=== PATIENT | female | born 1985 | race Caucasian/White ===

== ENCOUNTER 2025-02-18 22:28 | Observation (INO) | payer BC, SELFPAY ==
[2025-02-18 22:29] VITALS: BP 124/106; PULSE 82; RESP 18; TEMP 36.2; O2SAT 99; BMI 21.7
[2025-02-18 22:36] VITALS: BP 124/106; PULSE 82; RESP 18; O2SAT 99
--- NOTE | 2025-02-18 22:36 | CT_ITS ---
PROCEDURE: STROKE BRAIN/HEAD WITHOUT CONT 02/18/2025 REASON FOR EXAM: NEURO DEFICIT, ACUTE, STROKE SUSPECTED TECHNIQUE: Head CT without intravenous contrast. Coronal and Sagittal reconstruction series were provided. One or more dose reduction techniques were used (e.g., Automated exposure control, adjustment of the mA and/or kV according to patient size, use of iterative reconstruction technique. COMPARISON: None FINDINGS: * ACUTE: No acute infarct or hemorrhage. No mass effect or herniation. * BRAIN PARENCHYMA: Signal intensities are within normal limits for age. * VENTRICLES/EXTRA-AXIAL SPACES: No hydrocephalus or extra-axial fluid collections. * EXTRACRANIAL STRUCTURES: Visualized osseous structures are normal. Soft tissues are normal. CT/STROKE Brain/Head without Cont IMPRESSION: NO ACUTE FINDINGS Reading Location: [facility]
--- NOTE | 2025-02-18 22:36 | EKG12_ITS ---
Test Reason : STROKE Blood Pressure : */* mmHG Vent. Rate : 78 BPM Atrial Rate : 78 BPM P-R Int : 160 ms QRS Dur : 92 ms QT Int : 402 ms P-R-T Axes : 68 80 54 degrees QTcB Int : 458 ms Normal sinus rhythm Normal ECG Confirmed by LI SIMMONS, BETHANY ([id number]), associate editor MUNIR JORGE ([id number]) on 02/23/2025 9:07:09 AM Referred By: Confirmed By: BETHANY JEFFERSON MD
--- NOTE | 2025-02-18 22:37 | CT_ITS ---
PROCEDURE: STROKE CTA HEAD AND NECK W/CON 02/18/2025 REASON FOR EXAM: NEURO DEFICIT, ACUTE, STROKE SUSPECTED TECHNIQUE: CTA imaging of the head and neck from the aortic arch to the skull vertex with out contrast and with intravenous contrast. Multiplanar and multisequence images were obtained. CONTRAST: Omnipaque 350 VOLUME: 100 mL Not Provided Gauge IV One or more dose reduction techniques were used (e.g., Automated exposure control, adjustment of the mA and/or kV according to patient size, use of iterative reconstruction technique). COMPARISON: None FINDINGS: Aortic Arch: Normal size and branching pattern. No significant atherosclerotic plaque. Brachiocephalic and Subclavians: Unremarkable RIGHT Carotid: Right CCA: Unremarkable. Right ICA: Unremarkable. Maximum stenosis (NASCET): 0 % Right ECA: Unremarkable. LEFT Carotid: Left CCA: Unremarkable. Left ICA: Unremarkable. Maximum stenosis (NASCET): 0 % Left ECA: Unremarkable. Vertebrals: Codominant. Arise from the subclavians. Both vertebrals form the basilar. RIGHT Vertebral: Unremarkable. LEFT Vertebral: Anatomy: [place] anatomy is normal. Aneurysm or avm: Anterior cerebral arteries: Azygos configuration with bifurcation about the pericallosal region.: Middle cerebral arteries: Unremarkable. Basilar artery: Unremarkable. Posterior cerebral arteries: Unremarkable. Other major branches of the posterior circulation: Unremarkable. Major venous structures: Unremarkable. Other findings: Neck: No lymphadenopathy. Lungs: Lung apices are clear. Bones: Bones are unremarkable. CT/STROKE CTA Head AND Neck W/Con IMPRESSION: Patent anterior and posterior intracranial and extracranial circulation without hemodynamically significant stenosis. [facility]
--- NOTE | 2025-02-18 22:38 | ED.RN ---
Per Dr. Cirilo SIMMONS, not to call [facility] for Stroke Alert in triage.
[2025-02-18 22:39] VITALS: BMI 21.7
[2025-02-18 22:44] LABS: Absolute Lymphocyte Count 2.54 X10^3/uL (0.83-4.51); Absolute Neutrophil Count 3.8 X10^3/uL (2.0-7.7); Basophil# 0.06 X10^3/uL; Basophil% 0.8 % (0-1); Eosinophil# 0.12 X10^3/uL; Eosinophils% 1.6 % (0-5); Hematocrit 43.1 % (37-47); Hemoglobin 14.9 g/dL (12.0-15.0); Lymphocyte # 2.54 X10^3/ul (0.83-4.51); Lymphocyte % 34.7 % (19-41); Mean Corp Hgb Conc 34.6 g/dL (32-36); Mean Corpuscular Hgb 29.4 pg (27.0-32.0); Mean Platelet Vol. 9.4 fl (6.2-12.0); Monocyte# 0.79 X10^3/uL; Monocyte% 10.8 % (0-10); NRBC Flagged by Analyzer 0 % (0-5); Neutrophil % 51.8 % (47-70); Platelet Count 247 K/mm3 (150-450); RBC Distribution Width CV 12.2 % (11.6-14.6); RBC Distribution Width SD 37.5 fl (35.1-43.9); Red Blood Count 5.07 M/mm3 (4.2-5.4); White Blood Count 7.3 K/mm3 (4.4-11.0)
[2025-02-18 22:52] LABS: Prothrombin Time (Protime)PT. 13.6 SECONDS (11.7-14.9)
[2025-02-18 22:54] LABS: Bedside Glucose 91 mg/dL (74-106)
[2025-02-18 22:54] LABS: Partial Thromboplast Time 32.3 Seconds (24.1-36.2)
[2025-02-18 23:01] LABS: Alcohol, Blood (Medical)-Serum < 10.1 mg/dL (<=10.0); Anion Gap 13 (5-15); BUN 20 mg/dL (4-19); BUN/Creat Ratio 17.5 RATIO (10-20); Calcium,Total 9.7 mg/dL (7.6-11.0); Chloride 99 mmol/L (98-108); Creatinine, Serum 1.14 mg/dL (0.70-1.20); EST Glomerular Filtration Rate 63 (>60); Estimated Creatinine Clearance 62.64 ml/min (50-250); Glucose 90 mg/dL (70-99); Potassium 3.7 mmol/L (3.3-5.1); Sodium Level 135 mmol/L (133-145); Troponin T High Sensitivity < 6 ng/L (<=14)
--- NOTE | 2025-02-18 23:05 | EDS_ITS ---
HPI History of Present Illness Chief Complaint: Neuro S/Sx Informant: patient Onset/Context/Timing Onset: Today Context: Gradual Onset Current Severity: Gone Maximum Severity: Mild Narrative Narrative: 39-year-old female with past medical history of depression on Prozac. No prior cardiac history or dysrhythmia. No prior TIA or stroke. No prior history of clotting problems. States that she is under a lot of stress currently. They have 4 children at home. They also take care of 15 or so horses. 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 They also a lot of construction currently going on with her home which is adding to the stress. Said she felt like her mind was racing today. When she came in to work she felt like she was forgetting things. She did not feel safe taking care of patients. She had trouble sometimes finding words so she was brought down the emergency department to be evaluated. She denies any headache. No trouble moving her arms or legs. No vision change. Prior similar symptoms: No Recent Illness/Hospitalization: No PFSH PFSH Medical History no medical history Home Medications ?Medication ?Instructions ?Recorded ?Last Taken ?Type fluoxetine 20 mg capsule 20 mg PO DAILY 02/18/25 Unkn own History trazodone 50 mg tablet 50 mg PO QHS PRN PRN sleep 0 02/18/25 Unknown History Allergy/AdvReac Type Severity Reaction Status Date / Time No Known Allergies Allergy Verified 02/18/25 22:29 Surgical History History of Social History Smoking Status: Never smoker ROS ROS ED ROS Narrative Denies recent illness other than some mild diarrhea. Constitutional Constitutional ED: Denies chills or fever(s) Eyes Eyes: Denies blurry vision ENT ENT ED: Denies ear pain Cardiovascular Cardiovascular: Denies chest pain or palpitations Respiratory/Chest Respiratory/Chest: Denies cough or dyspnea Gastrointestinal Gastrointestinal: Denies abdominal pain Genitourinary Genitourinary ED: Denies dysuria or hematuria Musculoskeletal Musculoskeletal: Denies arthralgias, back pain or myalgias Integumentary Denies abscess or Abrasions Neurologic Neurologic: Denies headache(s) Psychiatric Psychiatric: Reports anxiety and depression Endocrine Endocrinology: Denies cold intolerance Hematologic/Lymphatic Hematologic/Lymphatic: Reports none Allergic/Immunologic Allergic/Immunologic ED: Denies mouth swelling, tongue swelling or urticaria EXAM Physical Exam Narrative Exam Narrative: 39-year-old female no acute distress vital signs stable afebrile. Pulse ox 99% on room air no signs of hypoxia. Initially saw on triage and reevaluated in room 11. H EENT exam pupils round react light. No facial droop. Normal speech. No trauma. Neck nontender no JVD. No lymphadenopathy. Lungs clear to AUSCULTATION bilaterally. Heart regular rhythm rate about 80 no murmur. Chest wall ribs nontender. Abdomen soft nontender. Moving all 4 extremities. Nontender no edema. Neurologically she is awake alert. Answering questions following commands. Normal clinical trial assistant strength. Normal speech. Normal dorsi plantarflexion. Normal fingertip to nose. No drift to the upper extremities. Normal dorsi plantarflexion. No drift in the lower extremities. [id number] normal. NIH is 0. At times she gets emotionally upset due to the stress but otherwise her exam is benign. Const Vital Signs: 02/18/25 22:29 02/18/25 22:36 02/18/25 22:40 Temperature 97.2 F L Temperature Source Temporal Pulse Rate 82 82 Respiratory Rate 18 18 Blood Pressure 124/106 H 124/106 H Blood Pressure Mean 112 112 Pulse Ox 99 99 Oxygen Delivery Method Room Air Room Air Room Air 02/18/25 23:28 02/19/25 00:00 Temperature Temperature Source Pulse Rate 67 61 Respiratory Rate 17 16 Blood Pressure 116/84 H 113/77 Blood Pressure Mean 94 89 Pulse Ox 99 100 Oxygen Delivery Method Room Air Room Air Positive well developed; Negative for cachectic, contractures or unkempt General Appearance ED: well developed and NAD; Negative for unkempt, cachectic, contractures, cyanotic, diaphoretic or pallor Nutritional Appearance: Negative for cachectic HEENT Reports moist mucous membranes Negative for trauma or tenderness Eyes PERRL and EOMs intact bilaterally Neck no lymphadenopathy, supple and no JVD Chest Wall inspection of chest normal and palpation of chest normal Resp normal respiratory effort and clear to auscultation bilaterally Cardio regular rate, regular rhythm, S1 normal heart sound, S2 normal heart sound and no murmurs GI normal to inspection, nondistended, normoactive bowel sounds, non-tender, non- distended and no masses Auscultation: normoactive bowel sounds Palpation: soft; Negative for tender, guarding or rebound tenderness present Back/Spine no CVA tenderness General Back: Negative for CVA tenderness Cervical Spine: Negative for cervical spine tenderness Thoracic Spine / Upper Back: Negative for thoracic spinal tenderness or paraspinal muscle tenderness Lumbar Spine / Lower Back: Negative for lumbar spinal tenderness Extremity normal to inspection General Extremety ED: Negative for edema or tenderness General Extremity: Negative for edema Neuro oriented x3 and CN's II-XII intact bilaterally Neuro Narrative: NIH is 0. Sensorium / Orientation: alert; Negative for orientation impaired, lethargic or stuporous Motor Exam: strength 5/5 throughout Psych mental status grossly normal Appearance: Negative for unkempt Attitude: No agitated Mood & Affect: anxious and tearful; Negative for depressed Skin no rashes or lesions noted, no wounds and skin turgor normal General Skin Exam: elasticity normal; Negative for jaundice or pallor Lesions: No lesion noted Rashes: No rashes noted Trauma: Negative for abrasion Wounds: Negative for wounds noted MDM MDM MDM Narrative Medical decision making narrative: 39-year-old female felt like her mind was racing. Possible difficulty finding her words but that is all completely resolved. Her neurologic exam and overall exam is completely normal. She was placed on a stroke protocol but my suspicion for stroke is extremely low. Patient was feeling anxious and requested something for anxiety she was given milligram p.o. of Ativan. Repeat exam at 12:20 AM patient doing well. More relaxed. Neurologic exam remains normal. NIH 0. Her is at her bedside. We discussed her test results for exams. Her CAT scans. Clinically I do not think this was a stroke or mini stroke. Given she has never had an anxiety attack before according to her . They would like her admitted for further evaluation and MRI. I will speak to the hospitalist. History & Record Review Discussion w/independent historian: Patient Additional record(s) reviewed:: Prior inpatient record, Prior outpatient record, Prior ED visit and Prior labs Lab Data Attestation: I reviewed the patient's lab results. Lab results narrative: CBC shows a white count of 7. H&H 14 and 43. Platelets 247. PT/INR is 13 and 1. PTT 32. Electrolytes show sodium 135. Gap 13. BUN and creatinine of 20 and 1.1. Glucose 90. Troponin is less than 6. EtOH is negative. CAT scan of the brain is negative. CTA of the head and neck unremarkable. Labs: Laboratory Results - last 24 hr 02/18/25 02/18/25 22:30 22:33 WBC 7.3 RBC 5.07 Hgb 14.9 Hct 43.1 MCV 85.0 MCH 29.4 MCHC 34.6 RDW Std Deviation 37.5 RDW Coeff of [place]adia 12.2 Plt Count 247 MPV 9.4 Immature Gran % (Auto) 0.300 Neut % (Auto) 51.8 Lymph % (Auto) 34.7 [place] % (Auto) 10.8 H Eos % (Auto) 1.6 Baso % (Auto) 0.8 Absolute Neuts (auto) 3.8 Absolute Lymphs (auto) 2.54 Nucleated RBC % 0 PT 13.6 INR 1.0 APTT 32.3 Sodium 135 Potassium 3.7 Chloride 99 Carbon Dioxide 24.0 Anion Gap 13 BUN 20 H Creatinine 1.14 Estim Creat Clear Calc 62.64 Est GFR (MDRD) Non-Af 63 BUN/Creatinine Ratio 17.5 Glucose 90 Calcium 9.7 Troponin T High Sens < 6 Ethyl Alcohol < 10.1 POC Glucose 91 Radiography Diagnostic Testing: Clinical Impression(s) from Imaging Studies Brain CT 02/18/25 22:36 IMPRESSION: NO ACUTE FINDINGS Reading Location: [facility] Head/Neck CTA 02/18/25 22:37 IMPRESSION: Patent anterior and posterior intracranial and extracranial circulation without hemodynamically significant stenosis. Reading Location: [facility] Rhythm Strip Rhythm Strip: Sinus Rhythm Rate: 78 Ectopy: None EKG Initial EKG: Attestation: I personally reviewed and interpreted this EKG as follows: Interpretation: Sinus Rhythm and No Acute Injury Pattern Comments: Normal sinus rhythm rate of 78 no acute signs of UT nor ischemia. No dysrhythmia. Discharge Plan Dx/Rx/DC Orders Clinical Impression: Anxiety, Dysarthria Disposition Disposition: [facility]
[2025-02-18] MEDS: LORazepam 1 MG Tablet PO (23:15)
[2025-02-18 23:28] VITALS: BP 116/84; PULSE 67; RESP 17; O2SAT 99
[2025-02-19] VITALS (10 sets, daily range): BP systolic 92–113; BP diastolic 63–98; PULSE 60–83; RESP 12–19; TEMP 36.6–36.9; O2SAT 97–100; BMI 20.2
--- NOTE | 2025-02-19 01:40 | ECHOD_ITS ---
Reason For Study Reason For Study: TIA/CVA Procedure This was a 2D Doppler, Color Flow transthoracic echocardiogram. Exam performed portable in patient room. Left Ventricle Normal LV size. The estimated ejection fraction is 55 %. No evidence for diastolic dysfunction. No regional wall motion abnormalities noted. Right Ventricle Normal RV size. Normal systolic function. Atria The left and right atria are normal. Bubble contrast study is negative for PFO/ASD. Mitral Valve There is no mitral valve stenosis. No mitral valve insufficiency. Tricuspid Valve There is no tricuspid stenosis. Unable to estimate RV systolic pressure due to insufficient tricuspid regurgitant envelope. Aortic Valve Trisinus/trileaflet aortic valve. There is no aortic stenosis. No aortic valve insufficiency. Pulmonic Valve There is no pulmonic valvular stenosis. No pulmonic valve insufficiency. Great Vessels The aortic root is not well visualized. Pericardium/Pleural No pericardial effusion. Medication Performed a rapid injection of agitated mix of 9 cc saline and 1cc air to assess for atrial septal defect. MMode/2D Measurements & Calculations LVIDd: 4.5 cm IVSd: 0.74 cm Ao root diam: 3.0 cm LVIDs: 2.8 cm LVPWd: 0.74 cm RVDd: 3.3 cm FS: 36.9 % LAV(MOD-bp): 21.9 ml LVAd ap4: 25.7 cm2 SV(MOD-sp4): 49.2 ml LAV(MOD-bp) Indexed: 13.0 ml/m2 LVLd ap4: 7.0 cm SI(MOD-sp4): 29.2 ml/m2 LAV(MOD-sp2): 26.2 ml EDV(MOD-sp4): 77.2 ml LAV(MOD-sp4): 18.1 ml EDV(sp4-el): 79.7 ml LVAs ap4: 13.8 cm2 LVLs ap4: 5.7 cm ESV(MOD-sp4): 28.0 ml ESV(sp4-el): 28.4 ml EF(MOD-sp4): 63.8 % EF(sp4-el): 64.3 % SV(sp4-el): 51.3 ml LA A4 area: 9.8 cm2 LA dimension(2D): 2.7 cm RA A4 area: 9.6 cm2 Time Measurements MV dec time: 0.32 sec Doppler Measurements & Calculations MV E max jese: 78.0 cm/sec Lat Peak E' Jese: 21.7 cm/sec Med Peak E' Jese: 15.5 cm/sec MV A max jese: 51.6 cm/sec E/E' lat: 3.6 E/E' med: 5.0 MV E/A: 1.5 MV V2 max: 86.1 cm/sec MV P1/2t max jese: 86.8 cm/sec Ao V2 max: 134.6 cm/sec MV max P.0 mmHg MV P1/2t: 111.5 msec Ao max P.2 mmHg MV V2 mean: 47.1 cm/sec MV dec slope: 228.0 cm/sec2 MV mean P.1 mmHg MVA(P1/2t): 2.0 cm2 MV V2 VTI: 27.1 cm LV V1 max: 119.5 cm/sec PA V2 max: 99.0 cm/sec LV V1 max P.7 mmHg ECHO/Echo Complete Interpretation Summary The estimated ejection fraction is 55 %. No evidence for diastolic dysfunction. Ordering Physician: Carissa Micahel Performed By: Boone Torres RCS
--- NOTE | 2025-02-19 01:47 | PCM.HP.STD ---
HPI - General General Date of Admission: 02/19/25 Date of Service: 02/19/25 Chief Complaint: TIA HPI Narrative JOSE G RECIO, is a 39 F with past medical history of depression, anxiety who presents to the ED for concerns regarding racing of thoughts' and difficulty in finding words since this morning. She notes she has been under significant stress at home and work lately. Also, her medications were started about 6 weeks back and her anxiety has increased since starting prozac. At the time of interview, she felt she is not back to her baseline functioning and still has to focus a lot more than usual to answer simple questions Works as the SERVER PROGRAMMER at [employer] No smoking, no alcohol use, no other drug use No family history of stroke No headaches or focal weakness present Had some difficulty while maintaining balance while walking CT head in the ED and priliminary examinations were negative for CVA [facility] Medical History no medical history Home Medications ?Medication ?Instructions ?Recorded ?Last Taken ?Type fluoxetine 20 mg capsule 20 mg PO DAILY 02/18/25 Unknown History trazodone 50 mg tablet 50 mg PO QHS PRN PRN sleep 02/18/25 Unknown History Allergy/AdvReac Type Severity Reaction Status Date / Time No Known Allergies Allergy Verified 02/18/25 22:29 Surgical History History of Social History Smoking Status: Never smoker Vital Signs Vital Signs Vital Signs: 02/18/25 22:29 02/18/25 22:36 02/18/25 22:40 Temperature 97.2 F L Temperature Source Temporal Pulse Rate 82 82 Respiratory Rate 18 18 Blood Pressure 124/106 H 124/106 H Blood Pressure Mean 112 112 Pulse Ox 99 99 Oxygen Delivery Method Room Air Room Air Room Air 02/18/25 23:28 02/19/25 00:00 02/19/25 00:37 Temperature 98.2 F Temperature Source Pulse Rate 67 61 60 Respiratory Rate 17 16 18 Blood Pressure 116/84 H 113/77 113/77 Blood Pressure Mean 94 89 89 Pulse Ox 99 100 100 Oxygen Delivery Method Room Air Room Air 02/19/25 01:00 Temperature Temperature Source Pulse Rate 78 Respiratory Rate 19 H Blood Pressure 109/98 H Blood Pressure Mean 101 Pulse Ox 97 Oxygen Delivery Method Room Air Weight Weight: 134 lb 14.4 oz Body Mass Index (BMI) 21.7 Physical Exam Const alert and oriented x3 HEENT normocephalic and head/scalp atraumatic Eyes PERRL and EOMs intact bilaterally Neck no lymphadenopathy Resp normal respiratory effort and no retractions Cardio regular rate and regular rhythm GI normal to inspection, nondistended, normoactive bowel sounds Extremity normal to inspection Neuro oriented x3, CN's II-XII intact bilaterally, moves all extremities and no focal motor deficits Sensorium / Orientation: awake, alert, oriented to person, oriented to place and oriented to time Results Medical Records Data Attestation: I reviewed the patient's medical records Lab / Micro Data 02/18/25 22:33 02/18/25 22:33 Labs: Laboratory Results - last 24 hr 02/18/25 22:30: POC Glucose 91 02/18/25 22:33: WBC 7.3, RBC 5.07, Hgb 14.9, Hct 43.1, MCV 85.0, MCH 29.4, MCHC 34.6, RDW Std Deviation 37.5, RDW Coeff of Eladia 12.2, Plt Count 247, MPV 9.4, Immature Gran % (Auto) 0.300, Neut % (Auto) 51.8, Lymph % (Auto) 34.7, [place] % (Auto) 10.8 H, Eos % (Auto) 1.6, Baso % (Auto) 0.8, Absolute Neuts (auto) 3.8, Absolute Lymphs (auto) 2.54, Nucleated RBC % 0, PT 13.6, INR 1.0, APTT 32.3, Sodium 135, Potassium 3.7, Chloride 99, Carbon Dioxide 24.0, Anion Gap 13, BUN 20 H, Creatinine 1.14, Estim Creat Clear Calc 62.64, Est GFR (MDRD) Non-Af 63, BUN/Creatinine Ratio 17.5, Glucose 90, Calcium 9.7, Troponin T High Sens < 6, Ethyl Alcohol < 10.1 Rhythm Strip Rhythm Strip: Sinus Rhythm Rate: 78 Ectopy: None Imaging Radiology Impression Brain CT 02/18/25 22:36 IMPRESSION: NO ACUTE FINDINGS Reading Location: [facility] Head/Neck CTA 02/18/25 22:37 IMPRESSION: Patent anterior and posterior intracranial and extracranial circulation without hemodynamically significant stenosis. Reading Location: [facility] Assessment & Plan Assessment/Plan (1) Dysarthria: PLAN: Plan 39-year-old female with history of of anxiety and depression presents to the ED with acute onset dysarthria, racing of thoughts and word finding difficulties that has not completely resolved since evaluation in the ED. There is no findings concerning for CVA at this time on the imaging studies and the likely reason for her presentation could be a panic attack given the ongoing stressors in her life, prior history of depression and recent initiation of Prozac. However there is a possibility of a missed TIA or an embolic episode or demyelination and we will admit her for MRI brain for further evaluation. #Dysarthria, confusion - Monitor for progression of neurodeficits via serial neurochecks - MRI brain with and without contrast scheduled for tomorrow to evaluate for ischemia, demyelination or any mass effect - Continue all precautions for fall prevention and close monitoring - Pending echocardiogram tomorrow - [facility] for [facility] - PT/OT evaluation for balance #Anxiety - continue present medications - Outpatient follow-up if symptoms are not controlled #Depression - Continue present medications #DVT - Low risk-admitted only for observation, encourage mobilization # Full code
[2025-02-19 07:05] LABS: Absolute Lymphocyte Count 1.77 X10^3/uL (0.83-4.51); Absolute Neutrophil Count 4.1 X10^3/uL (2.0-7.7); Basophil# 0.08 X10^3/uL; Basophil% 1.2 % (0-1); Eosinophil# 0.11 X10^3/uL; Eosinophils% 1.6 % (0-5); Hematocrit 39.7 % (37-47); Hemoglobin 13.2 g/dL (12.0-15.0); Lymphocyte # 1.77 X10^3/ul (0.83-4.51); Lymphocyte % 26.2 % (19-41); Mean Corp Hgb Conc 33.2 g/dL (32-36); Mean Corpuscular Hgb 29.3 pg (27.0-32.0); Mean Corpuscular Volume 88.2 fL (81-99); Mean Platelet Vol. 9.9 fl (6.2-12.0); Monocyte# 0.73 X10^3/uL; Monocyte% 10.8 % (0-10); NRBC Flagged by Analyzer 0 % (0-5); Neutrophil # 4.05 X10^3/uL (2.7-7.7); Neutrophil % 59.9 % (47-70); Platelet Count 209 K/mm3 (150-450); RBC Distribution Width CV 12.2 % (11.6-14.6); RBC Distribution Width SD 39.4 fl (35.1-43.9); White Blood Count 6.8 K/mm3 (4.4-11.0)
--- NOTE | 2025-02-19 07:41 | MRI_ITS ---
PROCEDURE: BRAIN WITHOUT CONTRAST 02/19/2025 REASON FOR EXAM: SUSPECTED TIA TECHNIQUE: Noncontrast brain MRI. Multiplanar and multisequence images were obtained. COMPARISON: Head CT of 02/18/2025. FINDINGS: Diffusion-weighted images demonstrate no area of restricted diffusion. Brain: Normal signal intensities. No orbital pathology is seen. Internal auditory canals appear symmetric and within the normal range. Ventricles: Normal. Major Intracranial Vessels: No abnormality identified. Sinuses: Clear. Mastoids: Clear. MRI/Brain without Contrast IMPRESSION: No significant abnormality identified. Reading Location: [place] [id number]
--- NOTE | 2025-02-19 08:29 | PCM.PN.HOSP ---
Reason for Visit Reason for Visit: Diagnoses Dysarthria and anarthria (02/19/25) Objective Data Objective Data Vital Signs: Vital Signs Temp Pulse Resp BP Pulse Ox O2 Del Method 98.5 F 83 16 106/71 98 Room Air 02/19/25 06:00 02/19/25 06:00 02/19/25 06:00 02/19/25 06:00 02/19/25 06:00 02/19/25 06:00 Oxygen Delivery Method Room Air Weight: 132 lb 11.492 oz Body Mass Index (BMI) 20.2 Intake & Output: Intake and Output for Last 24 Hours 02/17/25 02/18/25 02/19/25 23:59 23:59 23:59 Intake Total 100 / 100 Balance 100 / 100 Lab / Micro Data 02/19/25 06:15 02/18/25 22:33 Labs: Laboratory Results - last 24 hr 02/18/25 22:30: POC Glucose 91 02/18/25 22:33: WBC 7.3, RBC 5.07, Hgb 14.9, Hct 43.1, MCV 85.0, MCH 29.4, MCHC 34.6, RDW Std Deviation 37.5, RDW Coeff of [place]ad[place] 12.2, Plt Count 247, MPV 9.4, Immature Gran % (Auto) 0.300, Neut % (Auto) 51.8, Lymph % (Auto) 34.7, [place] % (Auto) 10.8 H, Eos % (Auto) 1.6, Baso % (Auto) 0.8, Absolute Neuts (auto) 3.8, Absolute Lymphs (auto) 2.54, Nucleated RBC % 0, PT 13.6, INR 1.0, APTT 32.3, Sodium 135, Potassium 3.7, Chloride 99, Carbon Dioxide 24.0, Anion Gap 13, BUN 20 H, Creatinine 1.14, Estim Creat Clear Calc 62.64, Est GFR (MDRD) Non-Af 63, BUN/Creatinine Ratio 17.5, Glucose 90, Calcium 9.7, Troponin T High Sens < 6, Ethyl Alcohol < 10.1 02/19/25 06:15: WBC 6.8, RBC 4.50, Hgb 13.2, Hct 39.7, MCV 88.2, MCH 29.3, MCHC 33.2, RDW Std Deviation 39.4, RDW Coeff of [place] 12.2, Plt Count 209, MPV 9.9, Immature Gran % (Auto) 0.300, Neut % (Auto) 59.9, Lymph % (Auto) 26.2, [place] % (Auto) 10.8 H, Eos % (Auto) 1.6, Baso % (Auto) 1.2 H, Absolute Neuts (auto) 4.1, Absolute Lymphs (auto) 1.77, Nucleated RBC % 0 Radiography Diagnostic Testing: Radiology Impression Brain CT 02/18/25 22:36 IMPRESSION: NO ACUTE FINDINGS [facility]Neck [facility] 02/18/25 22:37 IMPRESSION: Patent anterior and posterior intracranial and extracranial circulation without hemodynamically significant stenosis. Reading [facility] Rhythm Strip Rhythm Strip: Sinus Rhythm Rate: 78 Ectopy: None Assessment & Plan Assessment/Plan (1) Dysarthria: PLAN: Plan 39-year-old female with history of of anxiety and depression presents to the ED with acute onset dysarthria, racing of thoughts and word finding difficulties that has not completely resolved since evaluation in the ED. There is no findings concerning for CVA at this time on the imaging studies and the likely reason for her presentation could be a panic attack given the ongoing stressors in her life, prior history of depression and recent initiation of Prozac. However there is a possibility of a missed TIA or an embolic episode or demyelination and we will admit her for MRI brain for further evaluation. #Dysarthria, confusion - Monitor for progression of neurodeficits via serial neurochecks - MRI brain with and without contrast scheduled for tomorrow to evaluate for ischemia, demyelination or any mass effect - Continue all precautions for fall prevention and close monitoring - Pending echocardiogram tomorrow - Plan admit to [facility] for now - PT/OT evaluation for balance #Anxiety - continue present medications - Outpatient follow-up if symptoms are not controlled #Depression - Continue present medications #DVT - Low risk-admitted only for observation, encourage mobilization # Full code NIHSS NIHSS Nursing Documentation NIHSS Nursing Documentation: NIHSS: Ischemic Stroke/TIA Start: 02/19/25 01:39 Text: For PCU Patients: NIH and Neuro Check every 4 Status: Active hours, PRN and with change in RN caregiver. Freq: [id number] Protocol: Activity Type Activity Date Activity User E-sign Co-sign Detail Recorded Client Recorded Date Recorded By Document 02/19/25 06:00 [facility] [id number] 02/19/25 06:49 [facility] 02/19/25 06:00 NIH Stroke Scale [NIHSS] A score of 0 is normal or asymptomatic . Total possible score is 42. Inpatient: RN or Physician to activate a stroke alert for onset of new stroke symptoms or with NIHSS increase >/= 3 points. Following change in neurological status, NIHSS will be performed per physician order or more frequently PRN. -1a. Level of Consciousness 0 - Alert; keenly responsive -1b. LOC Questions 0 - Answers BOTH questions correctly -1c. LOC Commands 0 - Performs BOTH tasks correctly -2. Best Gaze 0 - Normal -3. Visual 0 - No visual loss -4. Facial Palsy 0 - Normal symmetrical movements -5a. Left Arm 0 - No drift; arm holds 90 ( or 45) degrees for full 10 seconds -5b. Right Arm 0 - No drift; arm holds 90 ( or 45) degrees for full 10 seconds -6a. Left Leg 0 - No drift; leg holds 30- degree position for full 5 seconds -6b. Right Leg 0 - No drift; leg holds 30- degree position for full 5 seconds -7. Limb Ataxia 0 - Absent -8. Sensory 1 - Mild-to- moderate sensory loss; -9. Best Language 0 - No aphasia; normal -10. Dysarthria 0 - Normal -11. Extinction and Inattention 0 - No abnormality -Total 1 Query Text:A score of 0 is normal or asymptomatic. Total possible score is 42 . ED: Notify Physician for NIHSS increase by > / = 3 points. Inpatient: RN or Physician to activate a stroke alert for NIHSS increase of > / = 3 points. Coma Scale [Assess] -Eye Opening Spontaneous -Motor Obeys Commands -Verbal Oriented [Total] -Coma Scale Total 15
[2025-02-19 09:11] LABS: Cholesterol 220 mg/dL (<=200); High Density Lipoprotein 97 mg/dL; Low Density Lipoprotein Calc. 116 mg/dL; Triglycerides 35 mg/dL; Very Low Density Lipoprotein 7 mg/dL (5-40); cholesterol:hdl ratio screen 2.28
[2025-02-19 09:26] LABS: ALB/GLOB Ratio 1.7 RATIO (0.9-2.4); AST(SGOT) 19 U/L (<=31); Alanine Aminotransfer ALT/SGPT 6 U/L (<=34); Albumin, Serum 4.2 g/dL (3.5-5.0); Alkaline Phosphatase 54 U/L (35-104); Anion Gap 11 (5-15); BUN 17 mg/dL (4-19); BUN/Creat Ratio 16.6 RATIO (10-20); Carbon Dioxide 22.4 mmol/L (21.0-32.0); Chloride 102 mmol/L (98-108); Creatinine, Serum 1.02 mg/dL (0.70-1.20); EST Glomerular Filtration Rate 72 (>60); Estimated Creatinine Clearance 71.07 ml/min (50-250); Globulin 2.5 g/dL (2.2-4.2); Glucose 83 mg/dL (70-99); Potassium 3.8 mmol/L (3.3-5.1); Protein, Total 6.7 g/dL (5.9-8.4); Sodium Level 136 mmol/L (133-145)
--- NOTE | 2025-02-19 10:20 | DCINST_ITS ---
Discharge Instructions Diet Discharge Diet: No restrictions DC O2, CPAP, BIPAP needs Home O2 Discharge instructions: No Dressing / Incision Discharge Activity: Return to Normal Activity Weight Bearing Status: Weight bearing as tolerated Dressing / Incision Call your doctor if you observe: Fever of 101 or Higher, Coldness, Increased Pain, Numbness or Tingling, Change in Color, Inability to urinate, Inability to have a bowel movement, Shortness of breath, Dizziness, Fainting spells, Swelling in the ankles, Chest pain, Prolonged hiccupping, Increased palpitations (irregular heartbeat) and Calf discomfort Follow Up Care When: IN 2 WEEKS Test Results: Test results from this visit will be discussed in further detail at your follow- up appointment, if applicable. Discharge Plan Admission Admit Date/Time: 02/19/25 01:38 Primary Reason for Your Visit: Numbness, acute stroke ruled out. Attending Provider: Christian Portillo Primary Care Provider: JOAN VILLAFANA Consulting Providers: Carissa Michael Discharge Orders/Prescriptions Prescriptions: Continued trazodone 50 mg tablet 50 mg PO QHS PRN PRN (Reason: sleep) fluoxetine 20 mg capsule 20 mg PO DAILY Referrals / Follow Up: JOAN VILLAFANA [Other] - As soon as possible JOAN VILLAFANA [Other] Care Physician,No Primary [Non-Staff] - Disposition Disposition (needs filled in before D/C Order can be placed): Home, Self Care
--- NOTE | 2025-02-19 15:23 | DS.PCM_ITS ---
Providers Date of Admission: 02/19/25 Date of Discharge: 02/19/25 Primary Care Physician: JOAN VILLAFANA Reason For Visit: TIA Diagnosis Discharge Diagnosis (1) Dysarthria: Status: Acute Code(s): R47.1 - Dysarthria and anarthria Plan 39-year-old female with history of of anxiety and depression presents to the ED with acute onset dysarthria, racing of thoughts and word finding difficulties that has not completely resolved since evaluation in the ED. There is no findings concerning for CVA at this time on the imaging studies and the likely reason for her presentation could be a panic attack given the ongoing stressors in her life, prior history of depression and recent initiation of Prozac. However there is a possibility of a missed TIA or an embolic episode or demyelination and we will admit her for MRI brain for further evaluation. #Dysarthria, confusion: Patient was admitted for stroke workup. She had NIH stroke scale of 0. She had complete workup for stroke including CTA head and neck and MRI brain all reported no acute abnormality. Fasting 12 shows total cholesterol 220, LDL 116. Patient is discharged home. Acute TIA/stroke ruled out. #Anxiety - continue present medications - Outpatient follow-up if symptoms are not controlled #Depression - Continue present medications #DVT - Low risk-admitted only for observation, encourage mobilization # Full code Medications at Discharge Home Medications fluoxetine 20 mg capsule 20 mg PO DAILY 02/18/25 trazodone 50 mg tablet 50 mg PO QHS PRN PRN sleep 02/18/25 Physical Exam Narrative Seen and examined Patient complained that she has anxiety and depression and she takes fluoxetine for about 2 months. She also takes intermittently trazodone 50 mg at night. She does not have dysarthria but was having word finding difficulty/verbal output before coming to ED Physical exam General: Alert, Oriented x3, Cooperative. BMI 20.2 kg/m? HEENT: Atraumatic, PERRLA, EOMI, Normocephalic. Oral: No Gingival or Mucosal Lesions/ Ulcerations Neck: Supple, No JVD, Negative Carotid Bruits Chest wall/Lungs: Air entry equal in bilateral lung bases. No crepitation/rhonchi Cardiovascular: Regular rate and rhythm, Normal S1,S2, No M/G/R Abdomen: Bowel Sounds Present, Soft, Non Tender, Non-Distended : No dysuria. No renal angle tenderness. No suprapubic tenderness. Extremities: No edema, Capillary Refill Less than 3 Seconds Skin: No rashes, No breakdown Musculoskeletal: No Tenderness to Palpation of Joints or Extremities Neurological: Cranial nerves II-XII grossly intact, DTR 2+/4. NIH stroke scale 0. No acute focal neurological deficit. Psych/Mental Status: Normal Affect, Appropriate. Weight / BMI Weight Weight: 132 lb 11.492 oz Body Mass Index (BMI) 20.2 ABG / Lab / Microbiology Data 02/19/25 06:15 02/19/25 06:15 Laboratory: Laboratory Results - last 24 hr 02/18/25 22:30: POC Glucose 91 02/18/25 22:33: WBC 7.3, RBC 5.07, Hgb 14.9, Hct 43.1, MCV 85.0, MCH 29.4, MCHC 34.6, RDW Std Deviation 37.5, RDW Coeff of Eladia 12.2, Plt Count 247, MPV 9.4, Immature Gran % (Auto) 0.300, Neut % (Auto) 51.8, Lymph % (Auto) 34.7, [place] % (Auto) 10.8 H, Eos % (Auto) 1.6, Baso % (Auto) 0.8, Absolute Neuts (auto) 3.8, Absolute Lymphs (auto) 2.54, Nucleated RBC % 0, PT 13.6, INR 1.0, APTT 32.3, Sodium 135, Potassium 3.7, Chloride 99, Carbon Dioxide 24.0, Anion Gap 13, BUN 20 H, Creatinine 1.14, Estim Creat Clear Calc 62.64, Est GFR (MDRD) Non-Af 63, BUN/Creatinine Ratio 17.5, Glucose 90, Calcium 9.7, Troponin T High Sens < 6, Ethyl Alcohol < 10.1 02/19/25 06:15: WBC 6.8, RBC 4.50, Hgb 13.2, Hct 39.7, MCV 88.2, MCH 29.3, MCHC 33.2, RDW Std Deviation 39.4, RDW Coeff of Eladia 12.2, Plt Count 209, MPV 9.9, Immature Gran % (Auto) 0.300, Neut % (Auto) 59.9, Lymph % (Auto) 26.2, [place] % (Auto) 10.8 H, Eos % (Auto) 1.6, Baso % (Auto) 1.2 H, Absolute Neuts (auto) 4.1, Absolute Lymphs (auto) 1.77, Nucleated RBC % 0, Sodium 136, Potassium 3.8, Chloride 102, Carbon Dioxide 22.4, Anion Gap 11, BUN 17, Creatinine 1.02, Estim Creat Clear Calc 71.07, Est GFR (MDRD) Non-Af 72, BUN/Creatinine Ratio 16.6, Glucose 83, Calcium 9.0, Total Bilirubin 0.60, AST 19, ALT 6, Alkaline Phosphatase 54, Total Protein 6.7, Albumin 4.2, Globulin 2.5, Albumin/Globulin Ratio 1.7, Triglycerides 35, Cholesterol 220 H, LDL Cholesterol, Calc 116, VLDL Cholesterol 7, HDL Cholesterol 97, Cholesterol/HDL Ratio 2.28 Radiography Diagnostic Testing: Radiology Impression Brain CT 02/18/25 22:36 IMPRESSION: NO ACUTE FINDINGS Reading Location: [facility] Head/Neck CTA 02/18/25 22:37 IMPRESSION: Patent anterior and posterior intracranial and extracranial circulation without hemodynamically significant stenosis. Reading Location: [facility] Echocardiogram 02/19/25 01:40 Interpretation Summary The estimated ejection fraction is 55 %. No evidence for diastolic dysfunction. Ordering Physician: Carissa Michael Performed By: Boone Torres RCS Brain MRI 02/19/25 07:41 IMPRESSION: No significant abnormality identified. Reading Location: [id number] D/C Instructions Discharge Diet: No restrictions Weight Bearing Status: Weight bearing as tolerated Call your doctor if you observe: Fever of 101 or Higher, Coldness, Increased Pain, Numbness or Tingling, Change in Color, Inability to urinate, Inability to have a bowel movement, Shortness of breath, Dizziness, Fainting spells, Swelling in the ankles, Chest pain, Prolonged hiccupping, Increased palpitations (irregular heartbeat) and Calf discomfort DC O2, CPAP, BIPAP Needs Home O2 Discharge instructions: No When: IN 2 WEEKS Meaningful Use Info Meaningful Use Meaningful Use Diagnoses (Choose all that apply): None applicable Ischemic Stroke Statin Dosing Therapy Reference: STATIN DOSE THERAPY REFERENCE: * Patients > 75 years receive moderate or high dose statin therapy. * Patients 75 years or YOUNGER should receive HIGH intensity statin dose unless contraindicated. You will be required to document reason for non-treatment if statin daily dose does not meet guidelines. HIGH DOSE STATIN THERAPY DAILY Atorvastatin > than or = to 40 mg Rosuvastatin > than or = to 20 mg Amlodipine + Atorvastatin > than or = to 2.5/40 mg Ezetimibe + Simvastatin 10/80 mg Simvastatin 80mg Discharge Plan Admission Admit Date/Time: 02/19/25 01:38 Primary Reason for Your Visit: Numbness, acute stroke ruled out. Attending Provider: Christian Portillo Primary Care Provider: JOAN VILLAFANA Consulting Providers: Carissa Michael Discharge Orders/Prescriptions Prescriptions: Continued trazodone 50 mg tablet 50 mg PO QHS PRN PRN (Reason: sleep) fluoxetine 20 mg capsule 20 mg PO DAILY Referrals / Follow Up: JOAN VILLAFANA [Other] - As soon as possible JOAN VILLAFANA [Other] Care Physician,No Primary [Non-Staff] - Disposition Disposition (needs filled in before D/C Order can be placed): Home, Self Care Charges/Coding Visit Charges Inpatient E&M: 60137 Disch Hosp >30min
--- NOTE | 2025-02-19 15:56 | CASEMGMT ---
SW did not complete a PHQ 9 as patient did not have Stroke or TIA. Tiffany RUBY
== END 2025-02-19 15:21 | disposition home or self-care (01) ==
LOC: ED 02-19 00:36 → PCU 02-19 05:26
PROVIDERS: Admitting Provider Internal Medicine; Emergency Provider Emergency Medicine; Visit Provider Internal Medicine
DX: R47.1 Dysarthria and anarthria (principal); F41.9 Anxiety disorder, unspecified; F32.A Depression, unspecified
CPT/HCPCS: 36415; 70450; 70496; 70498; 70551; 80048; 80053; 80061; 82077; 82962; 84484; 85025; 85610; 85730; 93005; 93306; 94762; 99221; 99285; A4216; G0378